=== PATIENT | female | born 1955 | race Caucasian/White ===

== ENCOUNTER 2017-04-04 13:28 | Inpatient (IN) | payer BC ==
--- NOTE | ~2017-04-04 | HP ---
History And Physical [facility] [address] [place]. [address] NAME: JEFFERSON LANDIN : 59 STATUS : ADM IN PAT#: [id number] AGE: 61 ADM/REG DATE : 04/04/17 MR#: [id number] REPORT SERV DATE: 04/05/17 DICTATED BY: PRESTON OLSON DATE: 04/04/17 REPORT STATUS : Draft TRANSCRIBED BY: MODCasandra DATE: 04/04/17 DATE OF ADMISSION: 04/04/2017 TIME: 1454 hours. LOCATION: Seen in ER room, bed 4. HISTORY OF PRESENT ILLNESS: The patient is a 61-year-old white female who recently underwent, last week as a matter of fact, gallbladder surgery, common bile duct exploration at [facility]. She presents now with a three-day history of nausea and vomiting and one-day history of syncope. Her family brought her in. She is not feeling well, has not been able to keep any food down. She does have two drainage bags connected to her abdomen and has a hemichevron incision on the right costal margin. The patient is awake and responsive,, although hypotensive. She received about 4 L of fluid and is now on pressors. PAST MEDICAL HISTORY: Significant for choledocholithiasis, multiple attempts of stone removal in the past. Also hyperlipidemia, hypertension, coronary artery disease, status post coronary stent placement. HOME MEDICATIONS: Include acetaminophen, Symbicort one puff every 12 hours, Coreg 25 twice a day, Catapres 0.1 mg twice a day, Pepcid 20 mg p.o. daily, Breo Ellipta one puff daily, Neurontin 300 mg p.o. daily, Anaspaz 0.125 mg p.o. daily, Lisinopril 30 mg p.o. daily, nitroglycerin 0.4 mg for chest pain, oxycodone 5 mg every four hours, MiraLAX powder, Zantac 150 daily, Lo-Colace, and simvastatin. ALLERGIES: CODEINE. REVIEW OF SYSTEMS: Otherwise negative and noncontributory except for cardiac history and history as noted above. FAMILY HISTORY: Noncontributory. PHYSICAL EXAMINATION: VITAL SIGNS: Blood pressure was 60/50, temperature was 99.6, her pulse was 69. GENERAL: The patient is pale in appearance. Awake, alert, and responsive. HEENT: Head is normocephalic. Sclerae and conjunctiva appear to be clear. NECK: Supple. Good upstroke. No bruit. CHEST: Decreased breath sounds. No wheezing or rhonchi. CARDIAC: S1 and S2. No murmurs or gallops. ABDOMEN: Large incision vikash under the right costochondral margin. She has two drainage bags emanating from this area of the abdomen. EXTREMITIES: No mottling or cyanosis. Good capillary return. Pulses palpable. NEUROLOGIC: Cranial nerves 2 through 12 appear to be intact. Deep tendon reflex appears normal. History And Physical [address] [address] NAME: JEFFERSON LANDIN : 59 STATUS : ADM IN [facility]#: [id number] AGE: 61 ADM/REG DATE : 04/04/17 MR#: [id number] REPORT SERV DATE: 04/05/17 DICTATED BY: PRESTON OLSON DATE: 04/04/17 REPORT STATUS : Draft TRANSCRIBED BY: BOGDAN DATE: 04/04/17 LABORATORY STUDIES: Show sodium 133, potassium 4.9, chloride 93, CO2 of 22, BUN 89, creatinine 7.91, glucose 119. H and H 11.3 and 33.6, white count 9400, platelet count of 94,000. Her PT is 515.4. INR 1.2. PTT 30.8. Lactate 1.0. Procal 1.15. Calcium 8.5. Liver functions apparently were normal. The chest x-ray is basically negative except for atherosclerotic aorta. No air under the diaphragm is seen. IMPRESSION: 1. Severe hypotension. 2. Acute renal failure probably related to nausea and vomiting. 3. I doubt sepsis is playable, cover her with antibiotics for this. 4. She is status post cholecystectomy with common bile duct exploration, now two drainage bags from the bile duct area. PLAN: We will get noncontrast CT of abdomen, contact Nephrology, continue rehydration, support blood pressure with Levophed, and consider antibiotic therapy. JOSE/BOGDAN Preston Olson M.D. / [id number] CC: Felipe Rowan M.D.
--- NOTE | ~2017-04-04 | IDS ---
Interim Discharge Summary [facility] [address] [place]. [address] NAME: JEFFERSON LANDIN : 59 STATUS : ADM IN [facility]#: [id number] AGE: 61 ADM/REG DATE : 04/04/17 MR#: [id number] REPORT SERV DATE: 04/07/17 DICTATED BY: PRESTON OLSON DATE: 04/07/17 REPORT STATUS : Draft TRANSCRIBED BY: MODL DATE: 04/07/17 ADMISSION DATE: 04/04/2017 DISCHARGE DATE: 04/07/2017 DATE OF TRANSFER: 04/07/2017. DIAGNOSES: Sepsis, shock, and hypotension, resolved. Acute kidney injury due to dehydration, totally resolved. She is status post cholecystectomy in [facility] on 03/26/2017. She has several biliary drains in. She has persistent bradycardia especially when sleeping. Her vital signs currently are stable. She is on Zosyn antibiotic, marked improvement in her white count. She is also on thiamine, sodium bicarbonate daily, Colace, Catapres 0.1, Norvasc. The patient's labs are stable. White count is normal. Ready for transfer to monitored bed. Etiology of bradycardia not elucidated and I suspect may be due to Catapres. RP/MODL Preston Olson M.D. / [id number] CC: Felipe Rowan M.D.
--- NOTE | ~2017-04-04 | DS ---
Discharge Summary [facility] [address] [facility] [place]. [address] NAME: JEFFERSON LANDIN : 59 STATUS : DIS IN PAT#: [id number] AGE: 61 ADM/REG DATE : 04/04/17 MR#: [id number] REPORT SERV DATE: 04/13/17 DICTATED BY: DAYTON IRENE DATE: 04/12/17 REPORT STATUS : Draft TRANSCRIBED BY: MODL DATE: 04/12/17 ADMISSION DATE: 04/04/2017 DISCHARGE DATE: 04/12/2017 DISCHARGE DIAGNOSES: 1. Severe hypotension with possibility of septic shock. 2. Acute renal failure, probably related to hypotension. 3. Recent common bile duct exploration with surgical removal of scarred adhesed gallbladder. 4. History of coronary artery disease with a stent. 5. Paroxysmal atrial fibrillation, currently in sinus rhythm. 6. History of chronic obstructive pulmonary disease. 7. Hypertension. CONSULTANTS DURING THIS HOSPITALIZATION: Dr. Shaun Rivas of Nephrology, Dr. Chidi Olson of Critical Care Medicine. INVASIVE PROCEDURES DONE DURING THIS HOSPITALIZATION: None. BRIEF HISTORY OF PRESENT ILLNESS: The patient is a 61-year-old female, who apparently recently underwent an exploratory surgery with removal of an adhesed gallbladder and common bile duct exploration with T-tube placement, presented with hypotension, so she was admitted. For detailed history and physical exam, please see note dictated by Dr. Chidi Olson on 04/04/2017. HOSPITAL COURSE: After being admitted to the hospital, this patient was placed in the intensive care unit and cared for by our intensive care unit physicians. Please refer to interim summary dictated by Dr. Olson on 04/07/2017. The patient was transitioned to the floor on 04/09/2017 Dr. Irlanda Serna. She was on day #6 of Zosyn. This patient was doing fairly well. Dr. Potts saw the patient in followup once the patient was on the floor on 04/10/2017. Dr. Potts thought that this was hypotension and not much sepsis, however, he did switch her to Augmentin to finish a course and she has finished seven days of Zosyn. This patient hemodynamically was stable. Her antihypertensives had to be restarted, and in fact, she had to receive more antihypertensives than what she normally takes. On the 04/11/2017, when I took over her care, this patient was found to have severe paroxysmal atrial fibrillation. During the night, she had a heart rate of 160, she was started on a Cardizem drip and given IV Lopressor. When I saw the patient, the patient's heart rate was well controlled. She had converted back to sinus rhythm. Consultation initially was asked for, however, that was cancelled. She did have a slight increase in her troponin which was at 0.05 went to 0.12 and now is down to 0.06. This was thought to be due to demand ischemia and no real coronary artery disease despite her history of coronary artery disease. This patient had an echocardiogram done which showed a mildly low ejection fraction of 45% to 50%. No significant valvular heart disease. No significant wall motion abnormality, and after 24 hours of observation, this patient felt well. She remained in sinus rhythm. We reinstituted all her home medications. I discontinued the Norvasc and hydralazine as her blood pressure has remained in the 120s with a normal heart rate. She will continue her Discharge Summary [address] [place]. [address] NAME: JEFFERSON LANDIN : 59 STATUS : DIS IN PAT#: [id number] AGE: 61 ADM/REG DATE : 04/04/17 MR#: [id number] REPORT SERV DATE: 04/13/17 DICTATED BY: DAYTON IRENE DATE: 04/12/17 REPORT STATUS : Draft TRANSCRIBED BY: MODCasandra DATE: 04/12/17 lisinopril and her Coreg like she normally does at home. I have asked her to follow up at [facility] for removal of her vikash and her T-tubes as they have performed her surgery and she also will be followed by Dr. Kenyon in the outpatient setting. Of note, because there was a slight elevation of troponin, I think this patient warrants a repeat cardiac stress testing in six to eight weeks when she is over her acute illness. DISCHARGE DISPOSITION: Home. DISCHARGE ACTIVITY: As tolerated. DISCHARGE DIET: Low sodium, cardiac diet. DISCHARGE MEDICATIONS: Coreg 25 mg p.o. twice daily, Pepcid 20 mg p.o. twice daily, Zantac 150 mg daily p.r.n. lisinopril 30 mg once daily, simvastatin 40 mg once daily, Breo Ellipta 1 puff daily p.r.n., Nitrostat 0.4 sublingual p.r.n. for chest pain, Lo-Colace 1 to 2 tablets twice daily, Symbicort 160/4.50 one puff every 12 hours, Tylenol 100 mg p.o. every 8 hours p.r.n., gabapentin 300 mg p.o. twice daily, Anaspaz 0.125 mg p.o. four times daily p.r.n., oxycodone 5 mg p.o. every four hours p.r.n., MiraLAX one packet p.o. daily p.r.n. DISCHARGE FOLLOWUP: With Dr. Cody Kenyon in one week with [facility], it is to be scheduled by the patient. More than 35 minutes spent planning this patient's discharge, reconciling medications, discussing hospital care, and followup with the patient and documenting this discharge. TORITO/BOGDAN Dayton Irene M.D. / [id number] CC: Felipe Rowan M.D.
--- NOTE | ~2017-04-04 | OP ---
Record Of Operation [facility] [address] [place]. [address] NAME: JEFFERSON LANDIN : 59 STATUS : ADM IN [facility]#: [id number] AGE: 61 ADM/REG DATE : 04/04/17 MR#: [id number] REPORT SERV DATE: 04/04/17 DICTATED BY: PRESTON OLSON DATE: 04/04/17 REPORT STATUS : Draft TRANSCRIBED BY: MODL DATE: 04/04/17 DATE OF PROCEDURE: 04/04/2017 TIME: 1500 hours. PROCEDURE: Right internal jugular venous line. INDICATION: For access. Informed consent obtained. Questions were answered. Time-out done. ChloraPrep scrub. Trendelenburg position. Ultrasound guided Xylocaine used for anesthesia. Right IJ entered with seeker needle. Catheter placed over guidewire via modified Seldinger technique to [address] Sterile technique used throughout. Confirmed by agitated saline technique. JOSE/BOGDAN Preston Olson M.D. / [id number] CC: Felipe Rowan M.D.
--- NOTE | ~2017-04-04 | CN ---
Consultation Report [facility] [address] [place]. [address] NAME: JEFFERSON VARGAS : 59 STATUS : ADM IN [facility]#: [id number] AGE: 61 ADM/REG DATE : 04/04/17 MR#: [id number] REPORT SERV DATE: 04/04/17 DICTATED BY: NELSON BROWN DATE: 04/04/17 REPORT STATUS : Draft TRANSCRIBED BY: MODL DATE: 04/04/17 NEPHROLOGY CONSULT DATE OF CONSULTATION: 04/04/2017 REASON FOR CONSULT: Acute kidney injury. HISTORY OF PRESENT ILLNESS: Ms. Vargas is a 61-year-old white female who has had an extensive history involving her gallbladder. In June 2016, she had gram-negative ana bacteremia and underwent ERCP with sphincterotomy for choledocholithiasis. At that time, she had a cholecystostomy tube placed and was unable to undergo open cholecystectomy due to complications. She eventually went to [facility] and underwent open cholecystectomy with drain placement on 03/26/2017. She was discharged from [facility] on 03/29/2017. Unfortunately, no records from that hospitalization are available for my review tonight. However, over the last five days, family has reported ongoing nausea, vomiting, diarrhea, and very little oral intake. Today, she had three syncopal episodes at home and was brought to the ER for weakness. She was scheduled to have outpatient evaluation at [facility] with removal of her sutures today. Here in the ER, BUN was 89, creatinine 7.9, potassium 4.9, and sodium 133. CT scan showed no hydronephrosis and chest x-ray showed no active process. Procalcitonin was 1.15 and lactate was 1.0. Reviewing records shows that her creatinine was 0.8 in July 2016. PAST MEDICAL HISTORY: 1. Choledocholithiasis and chronic cholecystitis as per HPI with recent open cholecystectomy at [facility] on 03/26/2017. 2. Hypertension. 3. Hyperlipidemia. 4. Atherosclerotic cardiovascular disease with history of RCA stent. 5. Chronic pain and neuropathy. MEDICATIONS: Include Symbicort inhaler, Coreg 25 mg b.i.d., clonidine 0.1 mg b.i.d., Pepcid, Azalia Ellipta, Neurontin, hyoscyamine, Zestril 30 mg daily, oxycodone 5 mg q.4 hours p.r.n., MiraLAX, Zantac, Colace, and Zocor 40 mg h.s. FAMILY HISTORY: No ESRD. SOCIAL HISTORY: Quit smoking in 2009. and lives in [place], [place]. REVIEW OF SYSTEMS: Please see HPI. MEDICATIONS: Takes no [id number] NSAIDs at home. PHYSICAL EXAMINATION: Consultation Report [address] [place]. [address] NAME: JEFFERSON VARGAS : 59 STATUS : ADM IN PAT#: [id number] AGE: 61 ADM/REG DATE : 04/04/17 MR#: [id number] REPORT SERV DATE: 04/04/17 DICTATED BY: NELSON BROWN DATE: 04/04/17 REPORT STATUS : Draft TRANSCRIBED BY: BOGDAN DATE: 04/04/17 VITAL SIGNS: Temperature 99.8, pulse 65, respirations 16, blood pressure 104/52, and 100% saturation on room air. She is on Levophed 12 mcg/minute. GENERAL: Ill-appearing white female, appears older than stated age. She is awake, alert, oriented, and cooperative with the exam. She is lying in her hospital bed in no distress, good historian. HEENT: Sclerae without icterus. Conjunctivae not injected. Oropharynx clear. Mucous membranes are dry. NECK: No JVD. LUNGS: Bilateral rhonchi without dyspnea or tachypnea on room air. HEART: Regular rate and rhythm. No rub. ABDOMEN: Soft. Gallbladder drain x2. Right upper quadrant noted with biliary output. EXTREMITIES: With no edema. SKIN: Without rash. NEURO: Grossly nonfocal. Clear yellow urine output is noted in the V[place]. MUSCULOSKELETAL: Shows no active tenosynovitis or gout. Mood and affect are appropriate. LABORATORY DATA: Sodium 133, potassium 4.9, bicarb 22, BUN 89, creatinine 7.9, calcium 8.5, and albumin 3.1. LFTs normal. White count 9.4 with 86% segmented neutrophils on the differential, no eosinophils, hemoglobin 11.3, platelets 396,000. INR 1.2. Lactate 1.0. Urinalysis pending. ASSESSMENT AND PLAN: Ms. Vargas has developed nonoliguric acute kidney injury in the setting of hypotension, anemia, hyponatremia, hypoalbuminemia, dehydration, atherosclerotic cardiovascular disease, nausea, vomiting, diarrhea, and recent open cholecystectomy with gallbladder drain placement at [facility] on 03/26/2017. Hopefully, she is dehydrated only, but concern exists for possible acute tubular necrosis with renal hypoperfusion due to hypotension. She had a systolic blood pressure of 59 on presentation to the ER earlier today. Hold GALDINO inhibitor and blood pressure medications for now. Continue IV fluid hydration. Albumin and pressor support. Kidneys are not obstructed by CT scan earlier today. Hopefully, renal function will improve with the above measures and the need for dialysis can be avoided. Check urine sodium. Family updated in room and agree with treatment plans. We will follow closely with you and appreciate consult. SALAS/BOGDAN Nelson Brown M.D. / [id number] Consultation Report [address] [address] NAME: JEFFERSON VARGAS : 59 STATUS : ADM IN PAT#: [id number] AGE: 61 ADM/REG DATE : 04/04/17 MR#: [id number] REPORT SERV DATE: 04/04/17 DICTATED BY: NELSON BROWN DATE: 04/04/17 REPORT STATUS : Draft TRANSCRIBED BY: BOGDAN DATE: 04/04/17 CC: Felipe Rowan M.D.
[2017-04-04 12:21] LABS: BASOPHILS 0.1 %; BASOPHILS ABSOLUTE 0.01 10/3/uL (0.0-0.16); EOSINOPHILS 0.2 %; EOSINOPHILS ABSOLUTE 0.02 10/3/uL (0.0-0.53); ER CBC TAT 0 Hrs 05 Mins; HEMATOCRIT 33.6 % (36.0-48.0); HEMOGLOBIN 11.3 g/dL (12.0-16.0); IMMATURE GRANULOCYTES 0.3 %; IMMATURE GRANULOCYTES ABSOLUTE 0.03 10/3/uL (0.0-0.11); LYMPHOCYTES 8.2 %; LYMPHOCYTES ABSOLUTE 0.77 10/3/uL (0.67-4.30); MEAN CORPUSCULAR HEMOGLOB 26.9 pg (26.0-34.0); MEAN PLATELET VOLUME 10.9 fL (9.2-13.0); MONOCYTES 4.7 %; MONOCYTES ABSOLUTE 0.44 10/3/uL (0.21-1.20); NEUTROPHILS 86.5 %; NEUTROPHILS ABSOLUTE 8.17 10/3/uL (2.02-8.40); PLATELET COUNT 396 10/3/uL (150-400); RBC DISTRIBUTION WIDTH 14.5 % (12.0-16.0); WHITE BLOOD CELLS 9.4 10/3/uL (4.5-10.5)
[2017-04-04 12:22] LABS: MANUAL DIFF NO %; MEAN CORPUS HGB CONC 33.6 g/dL (32.0-36.0)
[2017-04-04 12:30] LABS: INTERNATIONAL NORMAL RATI 1.2 UNITS (-); PARTIAL THROMBO TIME 30.8 SEC (22.5-37.2); PROTIME (NOT ORD) 15.4 SEC (12.0-14.5)
[2017-04-04 12:41] LABS: CALCIUM, SERUM 8.5 MG/DL (8.5-10.4); SGPT(ALT) 22 U/L (5-65); TOTAL PROTEIN 7.2 G/DL (6.0-8.5)
[2017-04-04 12:44] LABS: A/G RATIO 0.8 (0.7-1.9); ALBUMIN 3.1 G/DL (3.5-5.0); ALKALINE PHOSPHATASE 81 U/L (45-117); BUN (BLOOD UREA NITROGEN) 89 MG/DL (6-23); CHLORIDE, SERUM 93 MMOL/L (96-112); CO2 (CARBON DIOXIDE) 22 MMOL/L (24-34); CREATININE 7.91 MG/DL (0.55-1.02); GFR AFRICAN AMERICAN 6 ML/MIN (>=60); GFR NON AFRICAN AMERICAN 5 ML/MIN (>=60); GLOBULIN 4.1 G/DL (2.5-4.1); GLUCOSE, SERUM 119 MG/DL (60-99); TOTAL BILIRUBIN 0.4 MG/DL (0-1.2)
[2017-04-04 12:46] LABS: SGOT(AST) 18 U/L (5-40)
[2017-04-04 12:54] LABS: POTASSIUM, SERUM 4.9 MMOL/L (3.5-5.3); SODIUM, SERUM 133 MMOL/L (135-148)
[2017-04-04 12:57] LABS: PROCALCITONIN 1.15 ng/mL (<0.5)
[~2017-04-04 13:28] MED LIST: ASAB PO; BEN25 PO; CAT1 PO; COREG25 PO; FLAG500TAB PO; LIPITOR40 PO; NEUR300 PO; NITROQUICK0.4 MG SL; NITROSTAT0.4 MG SL; PERCOCET1 TA2 PO; PRIN10 PO; SYMAX-SL0.125 MG SL; ULTRAM50 PO; ZANTAC 150 PO
[2017-04-04] MEDS ORDERED: NITROSTAT0.4 MG SL (13:44)
[2017-04-04] MEDS ORDERED: BREO ELLIPTA INH (13:44)
[2017-04-04] MEDS ORDERED: PERI-COLACE1 TAB PO (13:47)
[2017-04-04] MEDS ORDERED: ACET500CAP PO (13:48)
[2017-04-04] MEDS ORDERED: SYMBICORT 160/41 INH INH (13:48)
[2017-04-04] MEDS ORDERED: ZANTAC150 MG PO (13:48)
[2017-04-04] MEDS ORDERED: NEUR300 PO (13:49)
[2017-04-04] MEDS ORDERED: PEP20 PO (13:49)
[2017-04-04] MEDS ORDERED: COREG25 PO (13:49)
[2017-04-04] MEDS ORDERED: CAT1 PO (13:49)
[2017-04-04] MEDS ORDERED: OXYCOD PO (13:50)
[2017-04-04] MEDS ORDERED: MIRALAX POWDER1 PKT PO (13:50)
[2017-04-04] MEDS ORDERED: ZESTRIL30 MG PO (13:50)
[2017-04-04] MEDS ORDERED: ANASPAZ0.125 MG PO (13:50)
[2017-04-04] MEDS ORDERED: ZOCOR40 PO (13:51)
[2017-04-04 16:58] LABS: WBC (NOT ORDERED) (RFLEX) 0 (0-5)
[2017-04-04 17:12] LABS: ASCORBIC ACID (UR NOT ORDER) NEG (NEG); BILIRUBIN, URINE NEGATIVE (NEG); ER URINALYSIS TAT 0 Hrs 14 Mins; KETONE, URINE NEGATIVE (NEG); LEUKOCYTE ESTERASE(NOT OR NEG (NEG); NITRITE (URINE) NEG (NEG)
[2017-04-04 18:58] LABS: FREE T4 1.15 NG/DL (0.76-1.46); ULTRASENSITIVE TSH 1.23 MCIU/ML (0.358-3.740)
[2017-04-05 03:51] LABS: BASOPHILS 0.3 %; BASOPHILS ABSOLUTE 0.02 10/3/uL (0.0-0.16); EOSINOPHILS 1.9 %; EOSINOPHILS ABSOLUTE 0.14 10/3/uL (0.0-0.53); HEMOGLOBIN 9.9 g/dL (12.0-16.0); IMMATURE GRANULOCYTES 0.4 %; IMMATURE GRANULOCYTES ABSOLUTE 0.03 10/3/uL (0.0-0.11); LYMPHOCYTES 12.9 %; LYMPHOCYTES ABSOLUTE 0.97 10/3/uL (0.67-4.30); MEAN CORPUS HGB CONC 33.4 g/dL (32.0-36.0); MEAN CORPUSCULAR HEMOGLOB 27.2 pg (26.0-34.0); MEAN CORPUSCULAR VOLUME 81.3 fL (80-100); MEAN PLATELET VOLUME 10.7 fL (9.2-13.0); MONOCYTES 9.2 %; MONOCYTES ABSOLUTE 0.69 10/3/uL (0.21-1.20); NEUTROPHILS 75.3 %; NEUTROPHILS ABSOLUTE 5.68 10/3/uL (2.02-8.40); PLATELET COUNT 342 10/3/uL (150-400); RBC DISTRIBUTION WIDTH 14.6 % (12.0-16.0); RED CELL COUNT 3.64 10/6/uL (4.0-5.6); WHITE BLOOD CELLS 7.5 10/3/uL (4.5-10.5)
[2017-04-05 04:04] LABS: HEMATOCRIT 29.6 % (36.0-48.0); MANUAL DIFF NO %
[2017-04-05 04:13] LABS: CHLORIDE, SERUM 110 MMOL/L (96-112); CO2 (CARBON DIOXIDE) 19 MMOL/L (24-34); GLUCOSE, SERUM 105 MG/DL (60-99); PHOSPHORUS, SERUM 7.2 MG/DL (2.5-4.5); POTASSIUM, SERUM 4.2 MMOL/L (3.5-5.3); SGOT(AST) 11 U/L (5-40); SGPT(ALT) 16 U/L (5-65); TOTAL BILIRUBIN 0.3 MG/DL (0-1.2); TOTAL PROTEIN 5.9 G/DL (6.0-8.5)
[2017-04-05 04:15] LABS: ALKALINE PHOSPHATASE 58 U/L (45-117); BUN (BLOOD UREA NITROGEN) 69 MG/DL (6-23); CREATININE 3.85 MG/DL (0.55-1.02); GFR AFRICAN AMERICAN 14 ML/MIN (>=60); GFR NON AFRICAN AMERICAN 12 ML/MIN (>=60); GLOBULIN 2.9 G/DL (2.5-4.1); SODIUM, SERUM 140 MMOL/L (135-148)
[2017-04-05 06:59] LABS: PROCALCITONIN 0.39 ng/mL (<0.5)
[2017-04-05 14:05] LABS: CALCIUM, SERUM 8.3 MG/DL (8.5-10.4); CHLORIDE, SERUM 113 MMOL/L (96-112); CO2 (CARBON DIOXIDE) 18 MMOL/L (24-34); GFR AFRICAN AMERICAN 22 ML/MIN (>=60); GFR NON AFRICAN AMERICAN 19 ML/MIN (>=60); GLUCOSE, SERUM 103 MG/DL (60-99); POTASSIUM, SERUM 4.3 MMOL/L (3.5-5.3); SODIUM, SERUM 141 MMOL/L (135-148)
[2017-04-05 14:06] LABS: BUN (BLOOD UREA NITROGEN) 57 MG/DL (6-23); CREATININE 2.65 MG/DL (0.55-1.02)
[2017-04-06 04:14] LABS: BASOPHILS 0.6 %; BASOPHILS ABSOLUTE 0.03 10/3/uL (0.0-0.16); EOSINOPHILS 4.1 %; EOSINOPHILS ABSOLUTE 0.22 10/3/uL (0.0-0.53); HEMATOCRIT 27.7 % (36.0-48.0); HEMOGLOBIN 9.1 g/dL (12.0-16.0); IMMATURE GRANULOCYTES 0.2 %; IMMATURE GRANULOCYTES ABSOLUTE 0.01 10/3/uL (0.0-0.11); LYMPHOCYTES 14.2 %; LYMPHOCYTES ABSOLUTE 0.76 10/3/uL (0.67-4.30); MEAN CORPUS HGB CONC 32.9 g/dL (32.0-36.0); MEAN CORPUSCULAR HEMOGLOB 26.8 pg (26.0-34.0); MEAN CORPUSCULAR VOLUME 81.7 fL (80-100); MEAN PLATELET VOLUME 10.8 fL (9.2-13.0); MONOCYTES 6.4 %; MONOCYTES ABSOLUTE 0.34 10/3/uL (0.21-1.20); NEUTROPHILS 74.5 %; NEUTROPHILS ABSOLUTE 3.99 10/3/uL (2.02-8.40); PLATELET COUNT 280 10/3/uL (150-400); RBC DISTRIBUTION WIDTH 14.6 % (12.0-16.0); RED CELL COUNT 3.39 10/6/uL (4.0-5.6); WHITE BLOOD CELLS 5.4 10/3/uL (4.5-10.5)
[2017-04-06 04:15] LABS: MANUAL DIFF NO %
[2017-04-06 04:35] LABS: CALCIUM, SERUM 8.1 MG/DL (8.5-10.4); CHLORIDE, SERUM 121 MMOL/L (96-112); CO2 (CARBON DIOXIDE) 17 MMOL/L (24-34)
[2017-04-06 04:38] LABS: BUN (BLOOD UREA NITROGEN) 42 MG/DL (6-23); CREATININE 1.71 MG/DL (0.55-1.02); GFR AFRICAN AMERICAN 37 ML/MIN (>=60); GFR NON AFRICAN AMERICAN 32 ML/MIN (>=60); GLUCOSE, SERUM 76 MG/DL (60-99); PHOSPHORUS, SERUM 3.3 MG/DL (2.5-4.5); SODIUM, SERUM 149 MMOL/L (135-148)
[2017-04-07 06:46] LABS: BASOPHILS 0.4 %; BASOPHILS ABSOLUTE 0.03 10/3/uL (0.0-0.16); EOSINOPHILS 2.9 %; HEMATOCRIT 27.7 % (36.0-48.0); HEMOGLOBIN 9.1 g/dL (12.0-16.0); IMMATURE GRANULOCYTES 0.1 %; IMMATURE GRANULOCYTES ABSOLUTE 0.01 10/3/uL (0.0-0.11); LYMPHOCYTES 11.2 %; LYMPHOCYTES ABSOLUTE 0.77 10/3/uL (0.67-4.30); MEAN CORPUS HGB CONC 32.9 g/dL (32.0-36.0); MEAN CORPUSCULAR HEMOGLOB 26.5 pg (26.0-34.0); MEAN CORPUSCULAR VOLUME 80.8 fL (80-100); MEAN PLATELET VOLUME 10.6 fL (9.2-13.0); MONOCYTES 7.4 %; MONOCYTES ABSOLUTE 0.51 10/3/uL (0.21-1.20); NEUTROPHILS ABSOLUTE 5.38 10/3/uL (2.02-8.40); PLATELET COUNT 280 10/3/uL (150-400); RBC DISTRIBUTION WIDTH 15.2 % (12.0-16.0); RED CELL COUNT 3.43 10/6/uL (4.0-5.6); WHITE BLOOD CELLS 6.9 10/3/uL (4.5-10.5)
[2017-04-07 06:48] LABS: MANUAL DIFF NO %
[2017-04-07 07:09] LABS: BUN (BLOOD UREA NITROGEN) 22 MG/DL (6-23); CALCIUM, SERUM 8.6 MG/DL (8.5-10.4); CHLORIDE, SERUM 119 MMOL/L (96-112); CO2 (CARBON DIOXIDE) 20 MMOL/L (24-34); CREATININE 1.05 MG/DL (0.55-1.02); GFR AFRICAN AMERICAN 67 ML/MIN (>=60); GFR NON AFRICAN AMERICAN 58 ML/MIN (>=60); GLUCOSE, SERUM 77 MG/DL (60-99); PHOSPHORUS, SERUM 1.6 MG/DL (2.5-4.5); POTASSIUM, SERUM 4.1 MMOL/L (3.5-5.3); SODIUM, SERUM 147 MMOL/L (135-148)
[2017-04-08 05:16] LABS: BASOPHILS 0.8 %; BASOPHILS ABSOLUTE 0.05 10/3/uL (0.0-0.16); EOSINOPHILS ABSOLUTE 0.26 10/3/uL (0.0-0.53); HEMATOCRIT 28.8 % (36.0-48.0); HEMOGLOBIN 9.5 g/dL (12.0-16.0); IMMATURE GRANULOCYTES 0.2 %; IMMATURE GRANULOCYTES ABSOLUTE 0.01 10/3/uL (0.0-0.11); LYMPHOCYTES 15.2 %; LYMPHOCYTES ABSOLUTE 0.98 10/3/uL (0.67-4.30); MANUAL DIFF NO %; MEAN CORPUSCULAR HEMOGLOB 26.8 pg (26.0-34.0); MEAN CORPUSCULAR VOLUME 81.1 fL (80-100); MEAN PLATELET VOLUME 10.8 fL (9.2-13.0); MONOCYTES ABSOLUTE 0.32 10/3/uL (0.21-1.20); NEUTROPHILS 74.8 %; NEUTROPHILS ABSOLUTE 4.82 10/3/uL (2.02-8.40); PLATELET COUNT 307 10/3/uL (150-400); RED CELL COUNT 3.55 10/6/uL (4.0-5.6); WHITE BLOOD CELLS 6.4 10/3/uL (4.5-10.5)
[2017-04-08 05:27] LABS: CALCIUM, SERUM 8.9 MG/DL (8.5-10.4); CHLORIDE, SERUM 114 MMOL/L (96-112); CO2 (CARBON DIOXIDE) 23 MMOL/L (24-34); CREATININE 0.82 MG/DL (0.55-1.02); GFR AFRICAN AMERICAN 91 ML/MIN (>=60); GFR NON AFRICAN AMERICAN 78 ML/MIN (>=60); GLUCOSE, SERUM 63 MG/DL (60-99); PHOSPHORUS, SERUM 1.8 MG/DL (2.5-4.5); POTASSIUM, SERUM 3.9 MMOL/L (3.5-5.3); SODIUM, SERUM 148 MMOL/L (135-148)
[2017-04-08 05:28] LABS: BUN (BLOOD UREA NITROGEN) 12 MG/DL (6-23)
[2017-04-09 05:16] LABS: BASOPHILS 0.7 %; BASOPHILS ABSOLUTE 0.04 10/3/uL (0.0-0.16); EOSINOPHILS 3.7 %; EOSINOPHILS ABSOLUTE 0.22 10/3/uL (0.0-0.53); HEMATOCRIT 33.2 % (36.0-48.0); HEMOGLOBIN 10.9 g/dL (12.0-16.0); IMMATURE GRANULOCYTES 0.7 %; IMMATURE GRANULOCYTES ABSOLUTE 0.04 10/3/uL (0.0-0.11); LYMPHOCYTES 14.4 %; LYMPHOCYTES ABSOLUTE 0.86 10/3/uL (0.67-4.30); MANUAL DIFF NO %; MEAN CORPUS HGB CONC 32.8 g/dL (32.0-36.0); MEAN CORPUSCULAR VOLUME 82.2 fL (80-100); MEAN PLATELET VOLUME 10.8 fL (9.2-13.0); MONOCYTES 4.7 %; MONOCYTES ABSOLUTE 0.28 10/3/uL (0.21-1.20); NEUTROPHILS 75.8 %; NEUTROPHILS ABSOLUTE 4.55 10/3/uL (2.02-8.40); PLATELET COUNT 342 10/3/uL (150-400); RED CELL COUNT 4.04 10/6/uL (4.0-5.6)
[2017-04-09 05:37] LABS: ALBUMIN 3.5 G/DL (3.5-5.0); BUN (BLOOD UREA NITROGEN) 10 MG/DL (6-23); CALCIUM, SERUM 9.3 MG/DL (8.5-10.4); CHLORIDE, SERUM 110 MMOL/L (96-112); CO2 (CARBON DIOXIDE) 21 MMOL/L (24-34); CREATININE 0.79 MG/DL (0.55-1.02); GFR AFRICAN AMERICAN 95 ML/MIN (>=60); GFR NON AFRICAN AMERICAN 82 ML/MIN (>=60); PHOSPHORUS, SERUM 1.8 MG/DL (2.5-4.5); POTASSIUM, SERUM 3.7 MMOL/L (3.5-5.3); SODIUM, SERUM 143 MMOL/L (135-148)
[2017-04-09 05:40] LABS: GLUCOSE, SERUM 82 MG/DL (60-99)
[2017-04-10 05:39] LABS: BASOPHILS 0.9 %; BASOPHILS ABSOLUTE 0.07 10/3/uL (0.0-0.16); EOSINOPHILS 4.9 %; EOSINOPHILS ABSOLUTE 0.37 10/3/uL (0.0-0.53); HEMATOCRIT 33.8 % (36.0-48.0); HEMOGLOBIN 11.1 g/dL (12.0-16.0); IMMATURE GRANULOCYTES 0.3 %; IMMATURE GRANULOCYTES ABSOLUTE 0.02 10/3/uL (0.0-0.11); LYMPHOCYTES 14.3 %; LYMPHOCYTES ABSOLUTE 1.07 10/3/uL (0.67-4.30); MANUAL DIFF NO %; MEAN CORPUS HGB CONC 32.8 g/dL (32.0-36.0); MEAN CORPUSCULAR HEMOGLOB 26.9 pg (26.0-34.0); MEAN CORPUSCULAR VOLUME 81.8 fL (80-100); MEAN PLATELET VOLUME 10.3 fL (9.2-13.0); MONOCYTES 6.7 %; NEUTROPHILS 72.9 %; NEUTROPHILS ABSOLUTE 5.47 10/3/uL (2.02-8.40); PLATELET COUNT 406 10/3/uL (150-400); RBC DISTRIBUTION WIDTH 15.1 % (12.0-16.0); RED CELL COUNT 4.13 10/6/uL (4.0-5.6); WHITE BLOOD CELLS 7.5 10/3/uL (4.5-10.5)
[2017-04-10 06:04] LABS: ALBUMIN 3.8 G/DL (3.5-5.0); BUN (BLOOD UREA NITROGEN) 13 MG/DL (6-23); CALCIUM, SERUM 9.7 MG/DL (8.5-10.4); CHLORIDE, SERUM 109 MMOL/L (96-112); CO2 (CARBON DIOXIDE) 22 MMOL/L (24-34); CREATININE 0.87 MG/DL (0.55-1.02); GFR AFRICAN AMERICAN 85 ML/MIN (>=60); GFR NON AFRICAN AMERICAN 73 ML/MIN (>=60); GLUCOSE, SERUM 77 MG/DL (60-99); PHOSPHORUS, SERUM 1.8 MG/DL (2.5-4.5); POTASSIUM, SERUM 3.4 MMOL/L (3.5-5.3); SODIUM, SERUM 145 MMOL/L (135-148)
[2017-04-10 19:07] LABS: PHOSPHORUS, SERUM 2.3 MG/DL (2.5-4.5)
[2017-04-10 19:08] LABS: POTASSIUM, SERUM 4.2 MMOL/L (3.5-5.3)
[2017-04-11 01:04] LABS: CPK 54 U/L (0-200); POTASSIUM, SERUM 3.5 MMOL/L (3.5-5.3)
[2017-04-11 01:06] LABS: CK-MB 2.3 NG/ML
[2017-04-11 01:07] LABS: TROPONIN I 0.05 NG/ML (<0.05)
[2017-04-11 07:02] LABS: BUN (BLOOD UREA NITROGEN) 14 MG/DL (6-23); CHLORIDE, SERUM 109 MMOL/L (96-112); CO2 (CARBON DIOXIDE) 25 MMOL/L (24-34); CREATININE 0.78 MG/DL (0.55-1.02); GFR AFRICAN AMERICAN 96 ML/MIN (>=60); GFR NON AFRICAN AMERICAN 83 ML/MIN (>=60); GLUCOSE, SERUM 84 MG/DL (60-99); PHOSPHORUS, SERUM 2.5 MG/DL (2.5-4.5); POTASSIUM, SERUM 4.2 MMOL/L (3.5-5.3); SODIUM, SERUM 143 MMOL/L (135-148)
[2017-04-11 10:55] LABS: CK-MB 2.4 NG/ML; CPK 45 U/L (0-200); TROPONIN I 0.12 NG/ML (<0.05)
[2017-04-11 17:06] LABS: CPK 50 U/L (0-200)
[2017-04-11 17:08] LABS: TROPONIN I 0.08 NG/ML (<0.05)
[2017-04-12 01:48] LABS: CPK 43 U/L (0-200)
[2017-04-12 01:49] LABS: TROPONIN I 0.06 NG/ML (<0.05)
[2017-04-12 05:09] LABS: BASOPHILS 0.7 %; BASOPHILS ABSOLUTE 0.04 10/3/uL (0.0-0.16); EOSINOPHILS 6.2 %; EOSINOPHILS ABSOLUTE 0.34 10/3/uL (0.0-0.53); HEMATOCRIT 31.5 % (36.0-48.0); HEMOGLOBIN 10.1 g/dL (12.0-16.0); IMMATURE GRANULOCYTES 0.4 %; IMMATURE GRANULOCYTES ABSOLUTE 0.02 10/3/uL (0.0-0.11); LYMPHOCYTES 18.2 %; MANUAL DIFF NO %; MEAN CORPUS HGB CONC 32.1 g/dL (32.0-36.0); MEAN CORPUSCULAR HEMOGLOB 26.9 pg (26.0-34.0); MEAN CORPUSCULAR VOLUME 83.8 fL (80-100); MEAN PLATELET VOLUME 11.4 fL (9.2-13.0); MONOCYTES 10.2 %; MONOCYTES ABSOLUTE 0.56 10/3/uL (0.21-1.20); NEUTROPHILS 64.3 %; NEUTROPHILS ABSOLUTE 3.54 10/3/uL (2.02-8.40); PLATELET COUNT 330 10/3/uL (150-400); RBC DISTRIBUTION WIDTH 15.3 % (12.0-16.0); RED CELL COUNT 3.76 10/6/uL (4.0-5.6); WHITE BLOOD CELLS 5.5 10/3/uL (4.5-10.5)
[2017-04-12 05:13] LABS: ALBUMIN 3.4 G/DL (3.5-5.0); ALKALINE PHOSPHATASE 61 U/L (45-117); BUN (BLOOD UREA NITROGEN) 16 MG/DL (6-23); CALCIUM, SERUM 9.1 MG/DL (8.5-10.4); CHLORIDE, SERUM 107 MMOL/L (96-112); CO2 (CARBON DIOXIDE) 26 MMOL/L (24-34); CREATININE 0.82 MG/DL (0.55-1.02); DIRECT BILIRUBIN 0.1 MG/DL (0.0-0.4); GFR AFRICAN AMERICAN 91 ML/MIN (>=60); GFR NON AFRICAN AMERICAN 78 ML/MIN (>=60); GLUCOSE, SERUM 82 MG/DL (60-99); INDIRECT BILIRUBIN(NOT ORDER) 0.3 MG/DL (0.1-0.9); PHOSPHORUS, SERUM 2.1 MG/DL (2.5-4.5); POTASSIUM, SERUM 3.9 MMOL/L (3.5-5.3); SGOT(AST) 17 U/L (5-40); SGPT(ALT) 14 U/L (5-65); SODIUM, SERUM 143 MMOL/L (135-148); TOTAL BILIRUBIN 0.4 MG/DL (0-1.2); TOTAL PROTEIN 6.6 G/DL (6.0-8.5)
== END 2017-04-12 10:40 | disposition home or self-care (01) | DRG 871 ==
LOC: ER 13:28 → CCU 14:51 → 2SO 04-09 10:24
PROVIDERS: Emergency Medicine; Internal Medicine; Internal Medicine Critical Care Medicine
PROC: 05HM33Z Insertion of Infusion Device into Right Internal Jugular Vein, Percutaneous Approach (ICD-10-PCS; principal; 2017-04-04)
PROC: B543ZZA Ultrasonography of Right Jugular Veins, Guidance (ICD-10-PCS; 2017-04-04)
DX: A41.9 Sepsis, unspecified organism (principal); R65.21 Severe sepsis with septic shock; N17.9 Acute kidney failure, unspecified; I48.0 Paroxysmal atrial fibrillation; E87.2 Acidosis; I10 Essential (primary) hypertension; R00.1 Bradycardia, unspecified; G62.9 Polyneuropathy, unspecified; E86.0 Dehydration; E78.5 Hyperlipidemia, unspecified; I25.10 Atherosclerotic heart disease of native coronary artery without angina pectoris; D64.9 Anemia, unspecified; J44.9 Chronic obstructive pulmonary disease, unspecified; G89.29 Other chronic pain; E88.09 Other disorders of plasma-protein metabolism, not elsewhere classified; Z98.890 Other specified postprocedural states; Z88.0 Allergy status to penicillin; Z95.5 Presence of coronary angioplasty implant and graft; Z87.891 Personal history of nicotine dependence; Z88.5 Allergy status to narcotic agent
CPT/HCPCS: 71010; 74176; 80048; 80053; 80069; 80076; 81001; 82533; 82550; 82553; 83036; 83605; 83735; 84100; 84132; 84145; 84300; 84439; 84443; 84484; 85025; 85610; 85730; 87040; 87641; 93005; 93306; 94640; 96361; 96374; 99285; A9270-GY; J2405; J2543; J3475; P9047